=== PATIENT | female | born 1980 | race Caucasian/White ===

== ENCOUNTER 2017-02-26 16:31 | Emergency (ER) | payer OTHER, SELFPAY ==
--- NOTE | 2017-02-26 | CT_ITS ---
CT abdomen pelvis w con ITS.REASON: ABDOMINAL PAIN X 1 WK, generalized abdominal pain ORDERING PHYSICIAN: Ryan Mckeon MD PATIENT AGE: 36 years COMPARISON: None TECHNIQUE: Axial images obtained with sagittal and coronal reformats. PROCEDURE: Oral Contrast: None IV Contrast: 75 mL's [id number]. FINDINGS: Small hiatal hernia. There is mild hepatomegaly. Liver measures 25 cm cephalad to caudad. There is a small area of decreased density within the portal region of the liver measuring 17 mm and may be due to an area of focal fatty infiltration3 and may be confirmed with follow-up. No biliary dilatation. Unremarkable gallbladder. The spleen, adrenal glands, and pancreas are unremarkable. Nonobstructing left renal calculi present with parenchymal calcifications in the lower pole of the left kidney with cortical scarring at this region. No hydronephrosis or ureteral calculi nonobstructing punctate right renal calculus mid polar region at 2 mm. No intestinal obstruction or free air. No evidence of appendicitis. There is focal infiltration of the fat in the lower abdomen and anterior to small bowel loops somewhat similar compared to the previous study with some slight increased density and may related to an area of fat necrosis or adhesions. Prior hysterectomy. IMPRESSION: 1. Bilateral nonobstructing nephrolithiasis with cortical scarring of the left kidney. 2. Hepatomegaly with focal decreased attenuation in the portal region of the liver which could be due to focal fatty infiltration and may be confirmed with follow-up. 3. Infiltration of the fat anterior to small bowel loops in the lower abdomen extending to the anterior abdominal wall somewhat similar compared to the previous exam and may be related to an area of scarring/fibrosis or adhesions.
[2017-02-26 16:34] VITALS: BP 152/92; PULSE 89; RESP 18; TEMP 36.9; O2SAT 96; BMI 37.8
--- NOTE | 2017-02-26 17:15 | [facility].EDGENADL ---
ED Disposition Clinical Impression: Abdominal pain, left lower quadrant Disposition: Home, Self-Care Condition on Discharge: Good Instructions: DI for Abdominal Pain-Adult Additional Instructions: Additional instructions for ABDOMINAL PAIN: See Nathaniel Card in the office tomorrow. Return immediately if worsening abdominal pain, vomiting, shortness of breath, fever, vomiting of blood or abdominal distention. Referrals: Dominic Mitchell MD [Primary Care Provider] - - Critical Care Critical Care Time: No Attestation: On , the high probability of a clinically significant, sudden or life threatening deterioration of the following system(s) required my full and direct attention, intervention and personal management. The time I documented below is in addition to time spent performing reported procedures but includes the following listed in this critical care notation. Medical Decision Making Vital Signs: 02/26/17 16:34 Temperature 98.4 F Temperature Source Oral Pulse Rate [Right Radial] 89 Respiratory Rate 18 Blood Pressure [Right Arm] 152/92 Blood Pressure Mean [Right Arm] 112 Blood Pressure Source [Right Arm] Automatic Cuff Blood Pressure Position [Right Arm] Sitting 02 Sat by Pulse Oximetry 96 Oxygen Delivery Method Room Air - Lab Data Lab results reviewed: Yes: I reviewed the patient's lab results. Lab Results 02/26/17 17:00: WBC 6.8, RBC 5.21, Hgb 14.9, Hct 44.4, MCV 85.2, MCH 28.6, MCHC 33.6, RDW 13.2, Plt Count 227, MPV 10.0, Neut % (Auto) 57.1, Lymph % (Auto) 34.7, [place] % (Auto) 5.6, Eos % (Auto) 1.9, Baso % (Auto) 0.7, Neut # (Auto) 3.9, Lymph # (Auto) 2.4, [place] # (Auto) 0.4, Eos # (Auto) 0.1, Baso # (Auto) 0.0 02/26/17 17:00: Sodium 131 L, Potassium 3.7, Chloride 97 L, Carbon Dioxide 25, Anion Gap 12.7, BUN 9, Creatinine 0.73, Estimated Creat Clear 186, Estimated GFR > 60, Est GFR ( Amer) > 60, Glucose 371 H, Calcium 8.7, Total Bilirubin 0.2, AST 14 L, ALT 30, Alkaline Phosphatase 106, Total Protein 6.6, Albumin 3.3 L, Globulin 3.3 H, Albumin/Globulin Ratio 1.0 L 02/26/17 17:30: Amylase 36, Lipase 191 Result diagrams: 02/26/17 17:00 02/26/17 17:00 Orders (Tests/Meds): ED MEDICATIONS Generic Name Dose Route Start Last Admin Trade Name Freq PRN Reason Stop Dose Admin Sodium Chloride 10 ml 02/26/17 16:47 Saline Flush 10ml Syringe IV 03/28/17 16:46 NEEDED PRN Maintain IV Site Sodium Chloride 10 ml 02/26/17 17:48 02/26/17 17:50 Rad-Saline Flush 10ml Syringe IV 03/28/17 17:47 10 ml NEEDED PRN Administration Maintain IV Site Discontinued Medications Generic Name Dose Route Start Last Admin Trade Name Freq PRN Reason Stop Dose Admin Iopamidol 75 ml 02/26/17 17:48 02/26/17 17:50 [id number]; 75ml Vial IV 02/26/17 17:49 75 ml ONCE ONE Administration ORDERS Category Date Time Status CT abdomen request [CT Request abd] Stat Cat Scan 02/26/17 16:45 Taken - CT Data CT Scan: Abdomen, Pelvis Time Received: 19:06 Findings Narrative: CT scan interpreted by [facility] radiologist. Faxed report received and reviewed: Moderate hiatal hernia. Bilateral nephrolithiasis. Edema in the fat anterior to small bowel loops extending to the peritoneal surface which by report has been present since the prior examination obtained 08/06/14, possibly secondary to fat necrosis and/or adhesions. Hepatomegaly. - [place] Inquiry Pt receiving controlled substance: No Medical Decision Making Narrative: 7:00 PM: Discussed with Nathaniel Card. She requests that the patient be discharged and follow-up with her in the office tomorrow and she will refer to surgery. She requests amylase is prior to discharge. General Adult HPI - General Chief complaint: Abdominal Pain Stated complaint: Lower Abd Pain Mode of Arrival: Ambulatory Limitations: No Limitations Description of Symptoms (Recalled from ER Triage Doc. by RN): mini
[2017-02-26 17:16] LABS: Basophils % 0.7 % (0.1-2.0); Eosinophils # 0.1 K/mm3 (0.0-0.4); Eosinophils % 1.9 % (0.1-12.0); Hematocrit 44.4 % (37.0-47.0); Hemoglobin 14.9 g/dL (12.2-16.2); Lymphocytes # 2.4 K/mm3 (0.7-4.5); Lymphocytes % 34.7 K/mm3 (10-50); Mean Corpuscular HGB Conc 33.6 g/dL (31.8-35.4); Mean Corpuscular Hemoglobin 28.6 pg (27.0-31.2); Mean Corpuscular Volume 85.2 fl (81-99); Monocytes # 0.4 K/mm3 (0.1-1.0); Monocytes % 5.6 % (1.7-9.3); Neutrophils # 3.9 K/mm3 (1.8-7.8); Neutrophils % 57.1 % (37.0-80.0); Platelet Count 227 K/mm3 (142-424); Red Blood Count 5.21 M/mm3 (4.20-5.40); Red Cell Distribution Width 13.2 % (11.5-17.5); White Blood Count 6.8 K/mm3 (4.8-10.8)
[2017-02-26 17:52] LABS: Alanine Aminotransferase 30 U/L (12-78); Albumin Level 3.3 gm/dL (3.4-5.0); Alkaline Phosphatase 106 U/L (46-116); Anion Gap 12.7 mEq/L (5-15); Bilirubin,Total 0.2 mg/dL (0.2-1.0); Blood Urea Nitrogen 9 mg/dL (7-18); Calcium 8.7 mg/dL (8.5-10.1); Carbon Dioxide 25 mmol/L (21.0-32.0); Chloride 97 mmol/L (98-107); Creatinine Clearance Estimated 186 mg/ml (0-300); Creatinine,Serum 0.73 mg/dL (0.55-1.02); Estimated Glomerular Filt Rate > 60 ml/min (>60); GFR (African American) > 60 ML/MIN (>60); Globulin 3.3 gm/dl (1.3-3.2); Glucose 371 mg/dL (74-106); Sodium 131 mmol/L (136-145); Total Protein,Serum 6.6 gm/dL (6.4-8.2)
[2017-02-26 17:53] LABS: Potassium 3.7 mmoL/L (3.5-5.1)
[2017-02-26 17:54] LABS: Aspartate Amino Transferase 14 U/L (15-37)
[2017-02-26 19:15] LABS: Amylase 36 U/L (25-125); Lipase 191 u/L (73-393)
== END 2017-02-26 20:05 | disposition home or self-care (01) ==
PROVIDERS: Emergency Provider Emergency Medicine; Family Provider Nurse Practitioner Family; PCP Emergency Medicine
DX: N20.0 Calculus of kidney (principal); E10.65 Type 1 diabetes mellitus with hyperglycemia; Z79.84 Long term (current) use of oral hypoglycemic drugs; I10 Essential (primary) hypertension; F17.210 Nicotine dependence, cigarettes, uncomplicated; Z88.6 Allergy status to analgesic agent
CPT/HCPCS: 74177; 80053; 82150; 83690; 85025; 96374; 99282; Q9967

== ENCOUNTER → 2018-10-01 15:44 | Outpatient (CLI) | payer BC, OTHER, SELFPAY ==
--- NOTE | 2018-10-01 15:50 | XR_ITS ---
XR chest 2V HISTORY: Cough, congestion, wheezing, smoker ITS.REASON: wheezing ORDERING PHYSICIAN: Ashlyn Allen APRN PATIENT AGE: 38 years COMPARISON: None FINDINGS: The cardiomediastinal silhouette and pulmonary vascularity are within normal limits. There is some increased density along right heart border consistent with atelectasis or infiltrate in the right middle lobe. No effusions. No acute bony findings. There is increased density in the right suprahilar region which may be due to vascular rib overlap. Follow-up suggested. There is coarsening of bronchovascular markings which could be related smoking-related lung disease IMPRESSION: Right middle lobe infiltrate with coarse bronchovascular markings and nonspecific opacity in the right suprahilar region. Follow-up suggested
== END ==
PROVIDERS: PCP Emergency Medicine; Visit Provider Nurse Practitioner Family
DX: R06.2 Wheezing (principal)
CPT/HCPCS: 71046

== ENCOUNTER → 2018-11-02 17:50 | Outpatient (CLI) | payer BC, OTHER, SELFPAY ==
[2018-11-02 18:39] LABS: Basophils # 0.1 K/mm3 (0-0.2); Basophils % 0.8 % (0.1-2.0); Eosinophils # 0.2 K/mm3 (0.0-0.4); Eosinophils % 2.1 % (0.1-12.0); Hematocrit 47.8 % (37.0-47.0); Hemoglobin 16.3 g/dL (12.2-16.2); Lymphocytes # 2.7 K/mm3 (0.7-4.5); Lymphocytes % 37.4 % (10-50); Mean Corpuscular HGB Conc 34.1 g/dL (31.8-35.4); Mean Corpuscular Hemoglobin 29.5 pg (27.0-31.2); Mean Corpuscular Volume 86.6 fl (81-99); Monocytes # 0.5 K/mm3 (0.1-1.0); Neutrophils # 3.8 K/mm3 (1.8-7.8); Neutrophils % 52.6 % (37.0-80.0); Platelet Count 272 K/mm3 (142-424); Red Blood Count 5.52 M/mm3 (4.20-5.40); Red Cell Distribution Width 13.6 % (11.5-17.5); White Blood Count 7.3 K/mm3 (4.8-10.8)
[2018-11-02 19:06] LABS: Alanine Aminotransferase 27 U/L (12-78); Albumin/Globulin Ratio 1.2 (1.1-1.8); Alkaline Phosphatase 94 U/L (46-116); Anion Gap 15.7 mEq/L (5-15); Aspartate Amino Transferase 12 U/L (15-37); Bilirubin,Total 0.4 mg/dL (0.2-1.0); Blood Urea Nitrogen 10 mg/dL (7-18); Calcium 9.8 mg/dL (8.5-10.1); Carbon Dioxide 27 mmol/L (21.0-32.0); Chloride 95 mmol/L (98-107); Chol/HDL Ratio 9.1 (1-3.5); Cholesterol 272 mg/dL (140-200); Estimated Glomerular Filt Rate 79 ml/min (>60); GFR (African American) 96 ML/MIN (>60); Globulin 3.4 gm/dl (1.3-3.2); Glucose 289 mg/dL (74-106); HDL Cholesterol 30 mg/dL (29-89); Hemoglobin A1C 9.9 % (0.0-7.0); Potassium 3.7 mmoL/L (3.5-5.1); Sodium 134 mmol/L (136-145); T4 (Thyroxine) 9.9 ug/dl (4.7-13.3); Thyroid Stimulating Hormone 1.32 uIU/ml (0.358-3.740); Total Protein,Serum 7.4 gm/dL (6.4-8.2)
[2018-11-02 19:07] LABS: Triglycerides 657 mg/dL (30-200)
[2018-11-04 13:13] LABS: Creatinine, Urine 177.8 mg/dL (Not Estab.); Microalbumin, Urine 336.1 ug/mL (Not Estab.)
[2018-11-05 07:16] LABS: Vitamin D 25 Hydroxy 9.1 ng/mL (30.0-100.0)
== END ==
PROVIDERS: Visit Provider Nurse Practitioner Family
DX: E11.9 Type 2 diabetes mellitus without complications (principal); Z79.84 Long term (current) use of oral hypoglycemic drugs
CPT/HCPCS: 80053; 80061; 82043; 82570; 82652; 83036; 84436; 84443; 85025

== ENCOUNTER → 2018-11-03 16:51 | Outpatient (CLI) | payer BC, OTHER, SELFPAY ==
--- NOTE | 2018-11-03 16:55 | XR_ITS ---
PROCEDURE: XR HIP RT 2-3V W/PELVIS CLINICAL INDICATION: hip pain COMPARISON: No exams were available for comparison FINDINGS: AP view of the pelvis shows minimal osteoarthritic change of the left hip. The right hip has an unremarkable appearance. No fracture or dislocation. No lytic or blastic change. IMPRESSION: Negative right hip. Minimal osteoarthritic change left hip Dictated by: Phoenix Monsivais MD 11/03/2018 17:55 Electronically signed by Phoenix Monsivais MD in [place] 11/03/2018 17:55
--- NOTE | 2018-11-03 16:55 | XR_ITS ---
PROCEDURE: XR HIP LT 2-3V W/PELVIS CLINICAL INDICATION: pain COMPARISON: No exams were available for comparison FINDINGS: There are mild osteoarthritic changes of the left hip with some decrease in the joint space and osteophyte formation. Eighty small accessory ossicle is present along the lesser trochanter and there is a small osteophyte along the greater trochanter IMPRESSION: Mild osteoarthritis of the left hip Dictated by: Phoenix Monsivais MD 11/03/2018 17:56 Electronically signed by Phoenix Monsivais MD in [place] 11/03/2018 17:56
--- NOTE | 2018-11-03 16:55 | XR_ITS ---
PROCEDURE: XR CHEST 2V CLINICAL HISTORY: cough COMPARISON: No exams were available for comparison FINDINGS: The cardiomediastinal silhouette and pulmonary vascularity are within normal limits. The lungs are clear without infiltrates, suspicious nodules, or pleural effusions. No acute bony abnormalities. IMPRESSION: No acute findings. Dictated by: Phoenix Monsivais MD 11/03/2018 17:54 Electronically signed by Phoenix Monsivais MD in [place] 11/03/2018 17:54
== END ==
PROVIDERS: PCP Nurse Practitioner Family; Visit Provider Nurse Practitioner Family
DX: R05 Cough (principal); F17.200 Nicotine dependence, unspecified, uncomplicated; M25.552 Pain in left hip; M25.551 Pain in right hip
CPT/HCPCS: 71046; 73502

== ENCOUNTER → 2019-03-01 13:44 | Outpatient (CLI) | payer BC, SELFPAY ==
--- NOTE | 2019-03-01 13:45 | MR_ITS ---
PROCEDURE: MR LUMBAR SPINE WO CON CLINICAL INDICATION: abnormal ct Fall with injury and pain, low back pain, compression fracture COMPARISON: [employer]/O MRI-L-SPINE W/O from 09/28/2015 CT LUMBAR SPINE WO CON from 02/15/2019 TECHNIQUE: Standard multiplanar multiecho sequences are performed without contrast. 3-D MIP and myelographic images are also rendered and reviewed FINDINGS: There is normal alignment. The spinal cord ends at the L1 level. T11-T12: Minimal right paracentral disc protrusion with mild right lateral recess narrowing without impingement with degenerative disc disease T12-L1: Degenerate disc disease L1-L2: Mild degenerative disc disease with mild facet ligamentum hypertrophy. There is minimal wedging of L1 with increased T2 signal involving the central and inferior aspect consistent with minimal acute wedge compression changes with loss of height anteriorly of approximately 10 percent. No retropulsion. L2-L3: Acute wedge compression changes are present involving the L3 vertebral body superiorly with loss of height anteriorly of approximately 30 percent with very minimal buckling of the posterior superior aspect of L3 vertebral body without impingement. There is mild facet ligamentum hypertrophy with mild bilateral lateral recess and foraminal narrowing. L3-L4: Unremarkable. L4-5: Unremarkable. L5-S1: Prior left laminectomy. Bulging disc with broad-based central left paracentral disc protrusion. There is suggestion of some minimal inferior extrusion. There is mild left lateral recess and foraminal narrowing. The disc abuts the left S1 nerve root. The extruded portion of the disc appears slightly smaller when compared 09/28/2015. There is some chronic scarring in the lower pole of the left kidney. There are small bilateral renal cysts IMPRESSION: 1. L1-L2: Mild degenerative disc disease with mild facet ligamentum hypertrophy. There is minimal wedging of L1 with increased T2 signal involving the central and inferior aspect consistent with minimal acute wedge compression changes with loss of height anteriorly of approximately 10 percent. No retropulsion. 2. L2-L3: Acute wedge compression changes are present involving the L3 vertebral body superiorly with loss of height anteriorly of approximately 30 percent with very minimal buckling of the posterior superior aspect of L3 vertebral body without impingement. There is mild facet ligamentum hypertrophy with mild bilateral lateral recess and foraminal narrowing. 3. L5-S1: Apparent prior left laminotomy. Bulging disc with broad-based central left paracentral disc protrusion. There is suggestion of some minimal inferior extrusion. There is mild left lateral recess and foraminal narrowing. The disc abuts the left S1 nerve root. The extruded portion of the disc appears slightly smaller when compared 09/28/2015. There is some chronic scarring in the lower pole of the left kidney. There are small bilateral renal cysts Dictated by: Phoenix Monsivais MD 03/02/2019 12:23 Electronically signed by Phoenix Monsivais MD in [place] 03/02/2019 12:23
== END ==
PROVIDERS: PCP Nurse Practitioner Family; Visit Provider Nurse Practitioner Family
DX: S32.030A Wedge compression fracture of third lumbar vertebra, initial encounter for closed fracture (principal)
CPT/HCPCS: 72148; 76376

== ENCOUNTER → 2019-09-09 17:37 | Outpatient (CLI) | payer BC, SELFPAY ==
[2019-09-09 18:35] LABS: Basophils # 0.1 K/mm3 (0-0.2); Basophils % 0.7 % (0.1-2.0); Eosinophils # 0.1 K/mm3 (0.0-0.4); Eosinophils % 1.1 % (0.1-12.0); Hematocrit 46.2 % (37.0-47.0); Hemoglobin 15.8 g/dL (12.2-16.2); Lymphocytes # 2.8 K/mm3 (0.7-4.5); Lymphocytes % 25.9 % (10-50); Mean Corpuscular HGB Conc 34.3 g/dL (31.8-35.4); Mean Corpuscular Hemoglobin 29.6 pg (27.0-31.2); Mean Corpuscular Volume 86.4 fl (81-99); Mean Platelet Volume 10.4 fl (7.4-10.4); Monocytes # 0.5 K/mm3 (0.1-1.0); Neutrophils # 7.2 K/mm3 (1.8-7.8); Neutrophils % 67.2 % (37.0-80.0); Platelet Count 267 K/mm3 (142-424); Red Blood Count 5.34 M/mm3 (4.20-5.40); White Blood Count 10.8 K/mm3 (4.8-10.8)
[2019-09-09 18:59] LABS: Alanine Aminotransferase 28 U/L (12-78); Albumin Level 4.4 g/dl (3.5-5.0); Albumin/Globulin Ratio 1.6 (1.1-1.8); Alkaline Phosphatase 122 U/L (38-126); Anion Gap 13.1 mEq/L (5-15); Aspartate Amino Transferase 41 U/L (14-36); Bilirubin,Total 0.5 mg/dl (0.2-1.3); Blood Urea Nitrogen 11 mg/dl (7-17); Calcium 9.6 mg/dl (8.4-10.2); Carbon Dioxide 28 mmol/L (22.0-30.0); Chloride 99 mmol/L (98-107); Estimated Glomerular Filt Rate 111 ml/min (>60); GFR (African American) 134 ML/MIN (>60); Globulin 2.7 g/dL (1.3-3.2); Glucose 234 mg/dl (74-100); HDL Cholesterol 50 mg/dl (40-60); Potassium 4.1 mmoL/L (3.5-5.1); Sodium 136 mmol/L (136-145); Total Protein,Serum 7.1 g/dl (6.3-8.2)
[2019-09-09 19:07] LABS: Chol/HDL Ratio 6.6 (1-3.5); Cholesterol 328 mg/dl (140-200); Triglycerides 854 mg/dl (30-150)
[2019-09-09 19:10] LABS: Direct LDL Cholesterol 102.63 mg/dL (100-129)
[2019-09-09 19:30] LABS: Thyroid Stimulating Hormone 1.42 uIU/mL (0.465-4.68)
[2019-09-09 19:49] LABS: Hemoglobin A1C 8.4 % (4.0-6.0)
== END ==
PROVIDERS: Visit Provider Nurse Practitioner Family
DX: E11.9 Type 2 diabetes mellitus without complications (principal); K59.00 Constipation, unspecified; Z79.84 Long term (current) use of oral hypoglycemic drugs
CPT/HCPCS: 80053; 80061; 83036; 84439; 84443; 85025